=== PATIENT | female | born 1995 | race African-American/Black ===

== ENCOUNTER 2017-05-26 22:54 | Emergency (ER) | payer OTHER ==
[~2017-05-26] VITALS: Ht 167.6 cm; Wt 73.2 kg
[~2017-05-26 22:54] MED LIST: 12 HOUR DECONG120 M1 PO; ROBITUSSIN DM118 ML PO
[2017-05-26 22:59] VITALS: BP 124/88
== END 2017-05-27 01:34 | disposition left against medical advice (07) ==
LOC: EME 22:54
DX: K08.89 Other specified disorders of teeth and supporting structures (principal); Z53.21 Procedure and treatment not carried out due to patient leaving prior to being seen by health care provider